=== PATIENT | male | born 1985 | race Two or more races ===

== ENCOUNTER 2023-06-08 00:23 | Emergency (ER) | payer SELFPAY ==
[2023-06-08 01:23] LABS: Absolute Lymphocytes (CBC) 2.9 K/uL (0.7-4.9); Hematocrit 45.6 % (39.6-49.0); Lymphocytes % 34.7 % (15.3-44.8); MCV 93.9 fL (80-100); MPV 9.2 fL (7.6-11.3); Platelets 169 thou/uL (152-406); RBC Red Blood Cell Count 4.86 M/uL (4.33-5.43)
[2023-06-08 01:25] LABS: Protime INR 1.08
[2023-06-08] MEDS ORDERED: ALBUTEROL 2.5 MG/3 ML NEB SOL ONE (01:50)
[2023-06-08 01:58] LABS: Albumin 4.5 g/dL (3.4-5.0); Bilirubin Direct 0.2 mg/dL (0-0.2); Bilirubin Indirect, Calculated 0.6 mg/dL (0.2-0.8); Bilirubin Total 0.8 mg/dL (0.2-1.0); Magnesium 2.2 mg/dL (1.6-2.4); Potassium 3.3 mEq/L (3.5-5.1); Protein, Total 8.8 g/dL (6.4-8.2); Troponin High Sensitivity 4.8 pg/mL (<58.9)
[2023-06-08 02:18] LABS: Thyroid Stimulating Hormone 13.3 uIU/mL (0.358-3.740)
[2023-06-08] MEDS ORDERED: CEPHALEXIN 250 MG CAP ONE (02:28)
[2023-06-08] MEDS ORDERED: PROMETHAZINE 25 MG TABLET ONE (02:28)
[2023-06-08] MEDS ORDERED: HYDROCODONE/APAP 10/325 TAB ONE (02:28)
[2023-06-08] MEDS ORDERED: NA CHLORIDE 0.9% 1,000 ML ONE (02:29)
[2023-06-08] MEDS ORDERED: KETOROLAC 30 MG/ML INJ ONE (02:29)
--- NOTE | 2023-06-08 03:50 | EDPHYS ---
Physician Documentation [facility] Name: Suzy Martin Age: 37 yrs Sex: Male : 1985 Arrival Date: 06/08/2023 Time: 00:23 Bed 13 Private MD: ED Physician Bossman Keys HPI: 06/08 00:42 This 37 yrs old Male presents to ER via Unassigned with complaints of sp4 Shortness Of Breath. 02:20 37-year-old male [place] of [facility] presents with referral to pain and feeling unwell for sp4 the past 15 days. Patient reports shortness of breath and persistent pain anterior lower neck roughly around the area of thyroid gland. Patient states that her swelling. Patient states he is vaccinated. He immigrated from [facility] 10 months ago. Historical: - Allergies: 00:46 No Known Allergies; kl - Home Meds: 00:46 None [Active]; kl - PMHx: 00:46 None; kl - PSHx: 00:46 None; kl - Immunization history:: Adult Immunizations up to date. - Social history:: Smoking status: Patient denies any tobacco usage or history of. - Family history:: not pertinent. ROS: 02:24 Constitutional: Negative for fever, chills, and weight loss, positive shortness of sp4 breath, positive throat pain, positive neck discomfort anterior neck. 02:24 All other systems are negative, Exam: 02:24 Constitutional: This is a well developed, well nourished patient who is awake, alert, sp4 and in no acute distress. Head/Face: Normocephalic, atraumatic. Eyes: Pupils equal round and reactive to light, extra-ocular motions intact. Lids and lashes normal. Conjunctiva and sclera are not injected. Cornea within normal limits. Periorbital areas with no swelling, redness, or edema. ENT: Nares patent. No nasal discharge, no septal abnormalities noted. Tympanic membranes are normal and external auditory canals are clear. Oropharynx with no redness, swelling, or masses, exudates, or evidence of obstruction, uvula midline. Mucous membranes moist. Neck: Trachea midline, no thyromegaly or masses palpated, and no cervical lymphadenopathy. Supple, full range of motion without nuchal rigidity, or vertebral point tenderness. Chest/axilla: Normal chest wall appearance and motion. Nontender with no deformity. No lesions are appreciated. Cardiovascular: Regular rate and rhythm with a normal S1 and S2. No gallops, murmurs, or rubs. Normal PMI, no JVD. No pulse deficits. Respiratory: Lungs have equal breath sounds bilaterally, clear to auscultation and percussion. No rales, rhonchi or wheezes noted. No increased work of breathing, no retractions or nasal flaring. Abdomen/GI: Soft, non-tender, with normal bowel sounds. No distension or tympany. No guarding or rebound. No evidence of tenderness throughout. Back: No spinal tenderness. No costovertebral tenderness. Skin: Warm, dry with normal turgor. Normal color with no rashes, no lesions, and no evidence of cellulitis. MS/ Extremity: Pulses equal, no cyanosis. Neurovascular intact. Full, normal range of motion. Neuro: Awake and alert, GCS 15, oriented to person, place, time, and situation. Cranial nerves II-XII grossly intact. Motor strength 5/5 in all extremities. Sensory grossly intact. Psych: Awake, alert, with orientation to person, place and time. Behavior, mood, and affect are within normal limits 02:35 ECG was reviewed by the Attending Physician. That he is EKG at 01:53 normal sinus sp4 rhythm at a rate of 77 normal EKG Vital Signs: 00:44 BP 139 / 92; Pulse 86; Resp 18; Pulse Ox 99% on R/A; Weight 65.77 kg (R); Height 5 ft. kl 6 in. ; 01:30 BP 144 / 86; Pulse 15; Resp 20; Pulse Ox 97% ; jj7 02:30 BP 143 / 86; Pulse 72; Resp 17; Pulse Ox 96% ; jj7 03:30 BP 124 / 77; Pulse 67; Resp 19; Pulse Ox 92% ; jj7 04:30 BP 101 / 76; Pulse 66; Resp 17; Pulse Ox 100% ; jj7 05:45 BP 109 / 86; Pulse 69; Resp 18; Pulse Ox 98% ; Pain 0/10; jj7 00:44 Body Mass Index 23.40 (65.77 kg, 167.64 cm) kl 05:45 Pain Scale: Adult j7 MDM: 00:49 Patient medically screened. sp4 01:37 ED course: Chest X ray - CLINICAL HISTORY: 37 years, Male, CHEST PAIN COMPARISON: None. sp4 FINDINGS: 1 x-ray views of the chest (portable) was obtained. No prior films are available for comparison. Day lung volume is slightly decreased. The cardiomediastinal silhouette demonstrate to be within normal limits. The heart is normal in size. The thoracic aorta is unremarkable. The pulmonary vasculature is normal distribution. Costophrenic angles are sharp. No areas of consolidation or masses are seen. The rest of the soft tissue and bony structures demonstrate to be unremarkable. IMPRESSION: No acute cardiopulmonary disease.. 02:35 ED course: . sp4 03:36 ED course: CT - TECHNIQUE: Contiguous axial images obtained through the neck following sp4 the uneventful administration of IV contrast. Coronal and sagittal reformatted images were provided. This exam was performed according to our departmental dose-optimization program, which includes automated exposure control, adjustment of the mA and/or kV according to patient size and/or use of iterative reconstruction technique. COMPARISON: None available for comparison FINDINGS: Oropharynx: Unremarkable. No significant tonsillar enlargement. No peritonsillar abscess. Hypopharynx: Unremarkable Larynx: Unremarkable. Normal epiglottis. Trachea: Unremarkable Retropharyngeal space: Unremarkable Normal parotid glands. Atrophic submandibular glands. Thyroid: Unremarkable Bones/joints: Unremarkable Soft tissues: Unremarkable Vessels: Unremarkable Lymph nodes: No pathologically enlarged lymph nodes. Paranasal sinuses: Well-aerated Mastoid air cells: Well-aerated Lung apices: Unremarkable as visualized Mediastinum: Unremarkable as visualized IMPRESSION: No evidence of acute pathology in the soft tissues of the neck. Atrophic submandibular glands which may be a sequela of chronic sialoadenitis. . 03:54 Differential diagnosis: Anxiety Reaction asthma, Bronchitis pneumonia, Psychogenic. sp4 Antibiotic administration: Patient was given p.o. cephalexin. Immunization status:. Data reviewed: vital signs, nurses notes, lab test result(s), EKG, radiologic studies, CT scan, plain films. ED course: Patient has elevated TSH and mildly decreased free T4. This indicates subclinical hypothyroidism. Patient will be advised to see networks software consultant in [facility]. patient additionally has signs of pharyngitis and bilateral otitis.. We will treat with cephalexin p.o. Will prescribe pain medications as well. There is no sign of airway compromise, no sign of neck mass, no sign of other emergent or life-threatening problem. Instructions were provided to the patient through the track announcer. . 06/08 00:49 Order name: BMP; Complete Time: 02:33 sp4 06/08 00:49 Order name: Blood Culture Adult (2) 4 06/08 00:49 Order name: CBC with Diff; Complete Time: 01:36 sp4 06/08 00:49 Order name: CPK; Complete Time: 02:33 sp4 06/08 00:49 Order name: Hepatic Function; Complete Time: 02:33 sp4 06/08 00:49 Order name: Lipase; Complete Time: 02: sp4 06/08 00:49 Order name: Magnesium; Complete Time: 02: sp4 06/08 00:49 Order name: NT PRO-BNP; Complete Time: 02:33 sp4 06/08 00:49 Order name: PT-INR; Complete Time: 01:36 4 06/08 00:49 Order name: Ptt, Activated; Complete Time: 01:36 06/08 00:49 Order name: Troponin HS; Complete Time: 02:33 sp4 06/08 00:49 Order name: COVID-19 SARS RT PCR; Complete Time: 02:19 06/08 00:49 Order name: Influenza Screen (a \T\ B); Complete Time: 02:33 sp4 06/08 01:42 Order name: T4 Free; Complete Time: 02:33 EDMS 06/08 01:42 Order name: Thyroid Stimulating Hormone; Complete Time: 02:33 EDMS 06/08 00:49 Order name: XRAY CXR (1 view) 06/08 01:35 Order name: CT Soft Tissue Neck W/contr 06/08 00:49 Order name: EKG; Complete Time: 00:50 06/08 00:49 Order name: Cardiac monitoring; Complete Time: 01:41 sp4 06/08 00:49 Order name: EKG - Nurse/Tech; Complete Time: 01:57 06/08 00:49 Order name: IV Saline Lock; Complete Time: 01:18 sp4 06/08 00:49 Order name: Labs collected and sent; Complete Time: 01:18 4 06/08 00:49 Order name: O2 Per Protocol; Complete Time: sp4 06/08 00:49 Order name: O2 Sat Monitoring; Complete Time: sp4 EC:35 Rate is 77 beats/min. Rhythm is regular, Normal Sinus Rhythm. QRS [place] is Normal. SC sp4 interval is normal. QRS interval is normal. QT interval is normal. No Q waves. T waves are Normal. Clinical impression: Normal ECG. Interpreted by me. Administered Medications: : Drug: Albuterol Inhalation 1.25 mg Inhalation once Route: Inhalation; jj7 02:25 Drug: Ketorolac IVP 30 mg IVP once Route: IVP; Site: right antecubital; jj7 05:15 Follow up: Response: Marked relief of symptoms jj7 02:26 Drug: [place] PO 10 mg-325 mg 1 tabs PO once Route: PO; jj7 05:14 Follow up: Response: Marked relief of symptoms jj7 02:26 Drug: Promethazine PO 25 mg PO once Route: PO; jj7 05:14 Follow up: Response: Marked relief of symptoms jj7 02:26 Drug: Cephalexin PO 500 mg PO once Route: PO; jj7 05:15 Follow up: Response: No adverse reaction jj7 02:26 Drug: NS 0.9% IV 1000 ml IV at 1 bolus Per protocol; 1000 mL bolus Route: IV; Rate: 1 jj7 bolus; Site: right antecubital; 03:39 Follow up: IV Status: Completed infusion jj7 Disposition Summary: 06/08/23 03:49 Discharge Ordered Problem: new sp4 Symptoms: have improved sp4 Condition: Stable sp4 Diagnosis - Hypothyroidism, unspecified sp4 - Acute pharyngitis, unspecified sp4 Followup: sp4 - With: Private Physician - When: 7 - 10 days - Reason: Recheck today's complaints Discharge Instructions: - Discharge Summary Sheet sp4 - Hypothyroidism sp4 - Pharyngitis sp4 Forms: - Patient Portal Instructions sp4 Prescriptions: - Cephalexin 500 mg Oral Capsule - take 1 capsule ORAL route every 12 hours for 10 days; 20 capsule; Refills: 0, sp4 Product Selection Permitted - Ibuprofen 800 mg Oral Tablet - take 1 tablet ORAL route every 8 hours As needed take with food; 30 tablet; sp4 Refills: 0, Product Selection Permitted - Tramadol 50 mg Oral tablet - take 1 tablet ORAL route every 8 hours as needed; 20 tablet; Refills: 0, sp4 Product Selection Permitted Signatures: Dispatcher [employer] EDPam Gilliam RN Rickie Arnold RN RN jj7 Bossman Keys MD MD sp4 Corrections: (The following items were deleted from the chart) 01:42 01:34 T4 FREE+C.LAB.BRZ ordered. EDMS EDMS 01:42 01:34 THYROID STIMULAT HORMONE+C.LAB.BRZ ordered. EDMS EDMS
--- NOTE | 2023-06-08 03:50 | ER ---
Nurse's Notes [facility] Name: Suzy Martin Age: 37 yrs Sex: Male : 1985 Arrival Date: 06/08/2023 Time: 00:23 Bed 13 Private MD: Diagnosis: Hypothyroidism, unspecified;Acute pharyngitis, unspecified Presentation: 06/08 00:44 Chief complaint: Patient states: Per language line re recording mixer #[id number] pt reports Diff kl swallowing feels like something is in his throat also reports constipation x 10 days. Coronavirus screen: Vaccine status: Patient reports receiving the 2nd dose of the covid vaccine. Ebola Screen: Patient negative for fever greater than or equal to 101.5 degrees Fahrenheit, and additional compatible Ebola Virus Disease symptoms. Initial Sepsis Screen: Does the patient meet any 2 criteria? No. Patient's initial sepsis screen is negative. Does the patient have a suspected source of infection? No. Patient's initial sepsis screen is negative. Risk Assessment: Do you want to hurt yourself or someone else? Patient reports no desire to harm self or others. 00:44 Method Of Arrival: Ambulatory kl 00:44 Acuity: MADDIE 3 kl Triage Assessment: 00:46 General: Appears in no apparent distress. Behavior is calm, cooperative. Pain: kl Complains of pain in neck and abdomen Quality of pain is described as aching. Respiratory: No deficits noted. Airway is patent Trachea midline Respiratory effort is even, unlabored, Respiratory pattern is regular, symmetrical. GI: Reports lower abdominal pain, upper abdominal pain, constipation. 01:15 Respiratory: Onset: The symptoms/episode began/occurred at an unknown time. the patient jj7 reports symptoms have resolved. Historical: - Allergies: 00:46 No Known Allergies; kl - Home Meds: 00:46 None [Active]; kl - PMHx: 00:46 None; kl - PSHx: 00:46 None; kl - Immunization history:: Adult Immunizations up to date. - Social history:: Smoking status: Patient denies any tobacco usage or history of. - Family history:: not pertinent. Screenin:15 [facility] ED Fall Risk Assessment (Adult) History of falling in the last 3 months, jj7 including since admission No falls in past 3 months (0 pts) Confusion or Disorientation No (0 pts) Intoxicated or Sedated No (0 pts) Impaired Gait No (0 pts) Mobility Assist Device Used No (0 pt) Altered Elimination No (0 pt) Score/Fall Risk Level 0 - 2 = Low Risk Oriented to surroundings, Maintained a safe environment. Abuse screen: Denies threats or abuse. Nutritional screening: No deficits noted. Tuberculosis screening: No symptoms or risk factors identified. Assessment: 01:15 General: Appears in no apparent distress. uncomfortable, Behavior is calm, cooperative, jj7 appropriate for age. Cardiovascular: No deficits noted. Rhythm is regular. Respiratory: No deficits noted. Airway is patent Trachea midline Respiratory effort is even, unlabored, Respiratory pattern is regular, Breath sounds are clear bilaterally. Vital Signs: 00:44 BP 139 / 92; Pulse 86; Resp 18; Pulse Ox 99% on R/A; Weight 65.77 kg (R); Height 5 ft. kl 6 in. ; 01:30 BP 144 / 86; Pulse 15; Resp 20; Pulse Ox 97% ; jj7 02:30 BP 143 / 86; Pulse 72; Resp 17; Pulse Ox 96% ; jj7 03:30 BP 124 / 77; Pulse 67; Resp 19; Pulse Ox 92% ; jj7 04:30 BP 101 / 76; Pulse 66; Resp 17; Pulse Ox 100% ; jj7 05:45 BP 109 / 86; Pulse 69; Resp 18; Pulse Ox 98% ; Pain 0/10; jj7 00:44 Body Mass Index 23.40 (65.77 kg, 167.64 cm) kl 05:45 Pain Scale: Adult jj7 ED Course: 00:30 Patient arrived in ED. gm2 00:42 Bossman Keys MD is Attending Physician. sp4 00:46 Triage completed. kl 01:00 Initial lab(s) drawn, by wy, sent to lab. Inserted saline lock: 20 gauge in right jw7 antecubital area, using aseptic technique. Blood collected. 01:00 First set of blood cultures drawn. jw7 01:03 XRAY CXR (1 view) In Process Unspecified. EDMS 01:15 Second set of blood cultures drawn. jw7 01:15 Patient has correct armband on for positive identification. Placed in gown. Bed in low jj7 position. Call light in reach. Side rails up X 1. Adult w/ patient. 01:15 Arm band placed on right wrist. Patient placed in an exam room, on a stretcher. jj7 01:28 Rickie Coppola, LUIS FERNANDO is Primary Nurse. jj7 01:37 Influenza Screen (a \T\ B) Sent. jj7 01:37 COVID-19 SARS RT PCR Sent. jj7 02:44 CT Soft Tissue Neck W/contr In Process Unspecified. EDMS 05:21 No provider procedures requiring assistance completed. IV discontinued, intact, jj7 bleeding controlled, No redness/swelling at site. Pressure dressing applied. 06:00 Provided Education on: F/U AND MEDICATION USAGE. jj7 Administered Medications: 01:41 Drug: Albuterol Inhalation 1.25 mg Inhalation once Route: Inhalation; jj7 02:25 Drug: Ketorolac IVP 30 mg IVP once Route: IVP; Site: right antecubital; jj7 05:15 Follow up: Response: Marked relief of symptoms jj7 02:26 Drug: [place] PO 10 mg-325 mg 1 tabs PO once Route: PO; jj7 05:14 Follow up: Response: Marked relief of symptoms jj7 02:26 Drug: Promethazine PO 25 mg PO once Route: PO; jj7 05:14 Follow up: Response: Marked relief of symptoms jj7 02:26 Drug: Cephalexin PO 500 mg PO once Route: PO; jj7 05:15 Follow up: Response: No adverse reaction jj7 02:26 Drug: NS 0.9% IV 1000 ml IV at 1 bolus Per protocol; 1000 mL bolus Route: IV; Rate: 1 jj7 bolus; Site: right antecubital; 03:39 Follow up: IV Status: Completed infusion jj7 Medication: 01:15 VIS not applicable for this client. jj7 Outcome: 03:49 Discharge ordered by MD. ayala 05:37 Discharged to home ambulatory, with friend, rachele 05:37 Condition: improved 05:37 Discharge instructions given to patient, friend, Instructed on discharge instructions, follow up and referral plans. medication usage, Demonstrated understanding of instructions, follow-up care, medications, Prescriptions given X 3, 06:00 Patient left the ED. jj7 Signatures: Dispatcher [facility] Pam Fernando RN RN kl [place], RN RN jw7 Rickie Coppola, RN RN jj7 Bossman Keys MD MD sp4 Natali Tate 2 Corrections: (The following items were deleted from the chart) 01:18 01:15 Second set of blood cultures drawn by huan morgan jw7
--- NOTE | 2023-06-08 11:54 | EKG ---
Test Date: 2023-06-08 Test Time: 01:53:23 Gym Instructor: WILFRED MEASUREMENT RESULTS: Intervals: Rate: 77 NM: 172 QRSD: 98 QT: 364 QTc: 411 [place]: P: 46 NM: 172 QRS: 69 T: 43 INTERPRETIVE STATEMENTS: Normal sinus rhythm Normal ECG No previous ECG available for comparison Electronically Signed On 06-08-23 11:53:32 CDT by Ovidio Webb
--- NOTE | 2023-06-08 14:43 | RAD REPORT ---
EXAM DESCRIPTION: RAD - Chest Single View - 06/08/2023 1:02 am CLINICAL HISTORY: 37 years, Male, CHEST PAIN COMPARISON: None. FINDINGS: 1 x-ray views of the chest (portable) was obtained. No prior films are available for dmitriy rison. Day lung volume is slightly decreased. The cardiomediastinal silhouette demonstrate to be with in normal limits. The heart is normal in size. The thoracic aorta is unremarkable. The pulmonary vasc ulature is normal distribution. Costophrenic angles are sharp. No areas of consolidation or masses are seen. The rest of the soft tissue and bony structures demonstrate to be unremarkable. IMPRESSION: No acute cardiopulmonary disease. Electronically signed by: Martin Han MD 06/08/2023 1:33 AM CDT Due to temporary technical issues with the PACS/Fluency reporting system, reports are being signed by the in house radiologists without review as a courtesy to insure prompt reporting. The interpreting radiologist is fully responsible for the content of the report.
--- NOTE | 2023-06-08 14:44 | RAD REPORT ---
EXAM DESCRIPTION: CT - Soft Tissue Neck W/Contr - 06/08/2023 6:41 am CLINICAL HISTORY: Throat pain and neck pain TECHNIQUE: Contiguous axial images obtained through the neck following the uneventful administration of IV contrast. Coronal and sagittal reformatted images were provided. This exam was performed according to our departmental dose-optimization program, which includes autom ated exposure control, adjustment of the mA and/or kV according to patient size and/or use of iterati ve reconstruction technique. COMPARISON: None available for comparison FINDINGS: Oropharynx: Unremarkable. No significant tonsillar enlargement. No peritonsillar abscess. Hypopharynx: Unremarkable Larynx: Unremarkable. Normal epiglottis. Trachea: Unremarkable Retropharyngeal space: Unremarkable Normal parotid glands. Atrophic submandibular glands. Thyroid: Unremarkable Bones/joints: Unremarkable Soft tissues: Unremarkable Vessels: Unremarkable Lymph nodes: No pathologically enlarged lymph nodes. Paranasal sinuses: Well-aerated Mastoid air cells: Well-aerated Lung apices: Unremarkable as visualized Mediastinum: Unremarkable as visualized IMPRESSION: No evidence of acute pathology in the soft tissues of the neck. Atrophic submandibular glands which may be a sequela of chronic sialoadenitis. Electronically signed by: Herman Pitt MD 06/08/2023 3:22 AM CDT Due to temporary technical issues with the PACS/Fluency reporting system, reports are being signed by the in house radiologists without review as a courtesy to insure prompt reporting. The interpreting radiologist is fully responsible for the content of the report.
== END 2023-06-08 06:00 | disposition home or self-care (01) ==
LOC: ER 00:23
DX: E03.9 Hypothyroidism, unspecified (principal); J02.9 Acute pharyngitis, unspecified
CPT/HCPCS: 36415; 70491; 71045; 80048; 80076; 82550; 83690; 83735; 83880; 84439; 84443; 84484; 85025; 85610; 85730; 87040; 87635; 87804; 93005; J7030; J7613; Q0169; Q9967